=== PATIENT | male | born 1975 | race Caucasian/White ===

== ENCOUNTER 2017-11-21 14:19 | Emergency (ER) | payer SELFPAY ==
[~2017-11-21] VITALS: Ht 175.3 cm; Wt 77.1 kg
[2017-11-21 14:28] VITALS: BP 126/74
== END 2017-11-21 15:26 | disposition home or self-care (01) ==
LOC: ER 14:19
DX: J20.9 Acute bronchitis, unspecified (principal); F17.210 Nicotine dependence, cigarettes, uncomplicated

== ENCOUNTER 2018-01-06 22:30 | Emergency (ER) | payer SELFPAY ==
[~2018-01-06] VITALS: Ht 175.3 cm; Wt 77.1 kg
[2018-01-07 00:24] VITALS: BP 115/75
[2018-01-07] MEDS: LIDOCAINE 1% HCL (LOCAL ANESTH.) INJ 20ML MDV ID ONE (01:32)
[2018-01-07] MEDS: cefTRIAXone SOD 1,000 MG VL IM ONE (01:32)
== END 2018-01-07 02:00 | disposition home or self-care (01) ==
LOC: ER 22:30
DX: L02.416 Cutaneous abscess of left lower limb (principal); F12.10 Cannabis abuse, uncomplicated; F15.10 Other stimulant abuse, uncomplicated; F11.10 Opioid abuse, uncomplicated
CPT/HCPCS: 10060; 96372; 99283; C1887; J0696; J2001

== ENCOUNTER 2018-01-10 10:59 | Emergency (ER) | payer SELFPAY ==
[~2018-01-10] VITALS: Ht 175.3 cm; Wt 77.1 kg
[2018-01-10 11:05] VITALS: BP 117/71
== END 2018-01-10 13:19 | disposition home or self-care (01) ==
LOC: ER 10:59
DX: L02.416 Cutaneous abscess of left lower limb (principal); F17.210 Nicotine dependence, cigarettes, uncomplicated; F12.10 Cannabis abuse, uncomplicated; F11.10 Opioid abuse, uncomplicated

== ENCOUNTER → 2018-04-22 | Emergency (ER) | payer SELFPAY ==
[~2018-04-22] VITALS: Ht 175.3 cm; Wt 79.4 kg
[2018-04-22 23:34] VITALS: BP 120/78
== END | disposition left against medical advice (07) ==
LOC: ER 23:28
DX: R21 Rash and other nonspecific skin eruption (principal); Z53.21 Procedure and treatment not carried out due to patient leaving prior to being seen by health care provider